=== PATIENT | male | born 1985 | race African-American/Black ===

== ENCOUNTER 2016-08-01 23:31 | Emergency (ER) | payer SELFPAY ==
[2016-08-01 23:43] VITALS: BP 142/80
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
== END 2016-08-02 00:50 | disposition home or self-care (01) ==
LOC: JD.ED 23:31
DX: F41.0 Panic disorder [episodic paroxysmal anxiety] (principal); F12.90 Cannabis use, unspecified, uncomplicated
CPT/HCPCS: 99283